=== PATIENT | male | born 1980 | race Two or more races ===

== ENCOUNTER 2021-11-18 06:45 | Day surgery (SDC) | payer OTHER ==
[~2021-11-18 06:45] MED LIST: COZAAR25 MG PO; TOPROL XL25 M1 PO
== END 2021-11-18 18:35 | disposition home or self-care (01) ==
LOC: CIR.AMB 06:45
PROVIDERS: ATTEND Specialist
DX: K80.10 Calculus of gallbladder with chronic cholecystitis without obstruction (principal); K81.1 Chronic cholecystitis

== ENCOUNTER 2023-09-06 07:19 | Outpatient (CLI) | payer OTHER | END 2023-09-06 07:31 | disposition home or self-care (01) | LOC: TOM 07:19 | PROVIDERS: ATTEND Specialist | DX: K43.2 Incisional hernia without obstruction or gangrene (principal) ==